=== PATIENT | female | born 1975 | race Asian ===

== ENCOUNTER 2022-03-29 09:52 | Emergency (ER) | payer OTHER ==
[~2022-03-29] VITALS: Ht 167.6 cm; Wt 100.7 kg
[2022-03-29 10:39] LABS: PLATELET COUNT 231 K/uL (152-353)
[2022-03-29 10:47] LABS: POTASSIUM 4.4 mmol/L (3.6-5.2)
[2022-03-29 14:53] VITALS: BP 138/72; TEMP 98.3
== END 2022-03-29 14:50 | disposition home or self-care (01) ==
LOC: ED 09:52
PROVIDERS: Family Medicine
DX: K59.09 Other constipation (principal); R14.3 Flatulence; R10.31 Right lower quadrant pain
CPT/HCPCS: 80053; 81002; 82150; 83690; 85027; 99283